=== PATIENT | male | born 1945 | race Caucasian/White ===

== ENCOUNTER → 2018-06-29 06:58 | Outpatient (CLI) | payer MEDICARE, SELFPAY ==
[2018-06-29 07:42] LABS: Hematocrit 45.5 % (40-54); Hemoglobin 13.9 g/dl (13.0-16.5); Mean Corp Hgb Conc 30.5 g/gl (32-36); Mean Corpuscular Hgb 30.3 pg (27.0-32.0); Mean Corpuscular Volume 99.1 fL (80-94); Platelet Count 209 K/mm3 (150-450); RBC Distribution Width CV 12.6 % (11.6-14.6); RBC Distribution Width SD 45.1 fl (35.1-43.9); Red Blood Count 4.59 M/mm3 (4.6-6.2)
[2018-06-29 07:49] LABS: Scan Indicated on CBC? Y/N NO
[2018-06-29 07:56] LABS: ALB/GLOB Ratio 0.8 RATIO (0.9-2.4); AST(SGOT) 17 U/L (15-37); Alanine Aminotransfer ALT/SGPT 21 U/L (16-61); Albumin, Serum 3.5 g/dL (3.2-5.0); Alkaline Phosphatase 103 U/L (45-117); Anion Gap 4 (5-15); BUN 21 mg/dL (7-18); BUN/Creat Ratio 21.2 RATIO (10-20); Calcium,Total 9.1 mg/dL (8.5-10.1); Chloride 101 mmol/L (98-107); Cholesterol 241 mg/dL (200); Creatinine, Serum 0.99 mg/dL (0.70-1.30); EST Glomerular Filtration Rate 79 mL/min (>60); Est Glom Filt Rate - Afr Amer 96 mL/min (>60); Globulin 4.5 g/dL (2.2-4.2); Glucose 141 mg/dL (74-106); High Density Lipoprotein 48 mg/dL; Potassium 4.2 mmol/L (3.5-5.1); Sodium Level 141 mmol/L (136-145); Thyroid Stim Hormone (TSH) 1.33 uIU/mL (0.358-3.74); Triglycerides 203 mg/dL; Very Low Density Lipoprotein 41 mg/dL (5-40)
== END ==
PROVIDERS: Family Provider Family Medicine; PCP Family Medicine; Referring Provider Internal Medicine Cardiovascular Disease; Visit Provider Internal Medicine Cardiovascular Disease
DX: I25.10 Atherosclerotic heart disease of native coronary artery without angina pectoris (principal); E11.9 Type 2 diabetes mellitus without complications
CPT/HCPCS: 80053; 80061; 83735; 84443; 85027

== ENCOUNTER → 2018-07-05 08:31 | Outpatient (CLI) | payer MEDICARE, SELFPAY ==
--- NOTE | 2018-07-05 08:34 | RAD_ITS ---
STUDY: X-RAY CHEST REASON FOR EXAM: Male, 73 years old. Left pulmonary nodule TECHNIQUE: PA and lateral views of the chest. COMPARISON: Prior study of 12/31/2015 FINDINGS: A left-sided pacemaker is present. There is a mass of the medial left upper lobe measuring approximately 4.0 x 4.5 cm. There are chronic interstitial changes of lungs. There is hemidiaphragmatic flattening with increased retrosternal airspace suggestive of COPD. There is no demonstrated pleural abnormality. Normal size heart. Normal mediastinum and rekha. Normal visualized pulmonary arteries. There are calcified plaques of the aortic arch. Normal visualized thoracic spine. Normal visualized ribs, clavicles, and shoulders. There is no demonstrated abnormality of the visualized soft tissue structures of the upper abdomen. RAD/Chest PA and Lateral IMPRESSION: Mass of the medial left upper lobe measuring approximately 4.0 x 4.5 cm. This was not seen on prior plain film study, but was noted on a CT of the chest of 01/25/2017. Findings suggestive of COPD. Chronic interstitial changes of the lungs. Electronically Signed: Ruben Werner MD at 17:50 EDT , Service support ,
== END ==
PROVIDERS: Family Provider Family Medicine; PCP Family Medicine; Referring Provider Family Medicine; Visit Provider Family Medicine
DX: R91.1 Solitary pulmonary nodule (principal)
CPT/HCPCS: 71046

== ENCOUNTER 2018-07-14 21:17 | Emergency (ER) | payer MEDICARE, SELFPAY ==
[2018-07-14 21:18] VITALS: BP 157/80; PULSE 70; RESP 16; TEMP 36.8; O2SAT 93; BMI 29.0
--- NOTE | 2018-07-14 22:57 | ED.DCSUM_ITS ---
History of Present Illness Chief Complaint: Shortness of Breath Narrative: Stated that over the last 3 days he has had a cough. Occasional yellow sputum. He has a history of COPD and chronic CHF. The patient stated that he has got more short of breath with his coughing fits. He is normally on 3 L of nasal cannula oxygen for his COPD. Over the last few days his increase it to 5 which is helped. He saw his family doctor on Sunday and had a chest x-ray done that showed an enlarging left pulmonary nodule that he is going to do nothing about. He understands it may be cancer but does not want a biopsy. He stated that he is going to live it out. She is on Xarelto for history of remote PE per patient denies any chest pain or other symptoms. Has not gained any weight in his legs. - Past Medical History (1) Ischemic cardiomyopathy Status: Chronic (2) Paroxysmal atrial flutter Status: Chronic (3) Benign essential HTN Status: Chronic (4) Biventricular implantable cardioverter-defibrillator (ICD) in situ Status: Chronic (5) COLD (chronic obstructive lung disease) Status: Chronic (6) Cardiomyopathy in other diseases classified elsewhere Status: Chronic (7) Chronic respiratory failure Status: Chronic (8) Chronic systolic congestive heart failure Status: Chronic (9) DM2 (diabetes mellitus, type 2) Status: Chronic (10) HLD (hyperlipidemia) Status: Chronic (11) Hypertension Status: Chronic (12) Left atrial enlargement Status: Chronic (13) Long-term use of high-risk medication Status: Chronic (14) CHESTER (obstructive sleep apnea) Status: Chronic (15) Peripheral vascular disease Status: Chronic Past Medical History - Allergies and Home Meds Allergies/Adverse Reactions: Allergies CAL Inhibitors Allergy (Verified 07/14/18 21:22) Unknown erythromycin base [Erythromycin Base] Allergy (Verified 07/14/18 21:22) Other levofloxacin [From Levaquin] Allergy (Verified 07/14/18 21:22) Other prednisone Adverse Reaction (Severe, Verified 07/14/18 21:22) Agitation Primary Care Physician: Fidel Ni MD [Primary Care Provider] - Prior records reviewed: Yes Surgical History: pacemaker implantation Lives: With Family Smoking Status: Former smoker Alcohol: None Drugs: None Review of Systems General: Denies: Chills, Fever, Sweats Eyes: Denies: Visual changes - bilaterally, Diplopia ENT: Denies: Rhinorrhea, Sore throat Cardiovascular: Denies: Chest pain, Palpitations Respiratory: Reports: Dyspnea, Cough, Sputum. Denies: Dyspnea on exertion, Orthopnea Gastrointestinal: Denies: Abdominal pain, Nausea, Vomiting, Diarrhea, Melena, Hematochezia Genitourinary: Denies: Dysuria, Hematuria, Frequency Musculoskeletal: Denies: Back pain, Extremity Pain Skin: Denies: Rash, Wounds Neurological: Denies: Headache, Weakness, Numbness Physical Exam Vital Signs/Narrative: Vital Signs Temp Pulse Resp BP Pulse Ox 07/14/18 21:18 98.3 F 70 16 157/80 H 93 General: Well nourished, Well developed, No Acute Distress Head: Normocephalic, Atraumatic Eyes: Perrl, EOMI ENT: Moist mucous membranes, No rhinorrhea Neck: Supple, Nontender Cardiovascular: Regular rate, Regular rhythm, No murmurs Respiratory: No distress, CTA bilaterally, Chest nontender Abdomen: Soft, Nontender, Nondistended, Normal bowel sounds Back: Nontender, Normal Inspection Extremities: Nontender, No edema Skin: Normal color, No rash Neurological: Alert, Oriented x3, Cranial nerves II-XII grossly intact, Normal Strength, Normal Sensation Psychological: Normal affect, Normal Mood Diagnostic/Tx/Re-eval Impressions Chest X-Ray 07/14/18 23:24 IMPRESSION: Redemonstration of a left upper lobe lung mass. Would consider CT scan of the chest for reevaluation, if not recently done elsewhere. Small left pleural effusion, worse. COPD. Diffuse chronic interstitial lung disease. Pacemaker. Electronically Signed: Thomas Agudelo MD at 1:20 EDT , Service support , 07/14/18 23:24 Chest PA and Lateral [RAD] Stat 07/14/18 23:09 Mucosa - Nasopharyngeal Influenza Types A,B Direct FA ([facility]) - Final Laboratory Results 07/14/18 07/14/18 22:55 22:55 WBC 7.3 RBC 4.45 L Hgb 13.4 Hct 42.3 MCV 95.1 H MCH 30.1 MCHC 31.7 L RDW 12.5 RDW Differential 43.4 Plt Count 219 MPV 10.4 Immature Gran % (Auto) 0.100 Neut % (Auto) 64.2 Lymph % (Auto) 19.8 [place] % (Auto) 13.3 H Eos % (Auto) 2.6 Baso % (Auto) 0.0 Absolute Neuts (auto) 4.7 Absolute Lymphs (auto) 1.44 Total Counted Not Reportable Sodium 141 Potassium 4.0 Chloride 104 Carbon Dioxide 31.0 Anion Gap 6 BUN 10 Creatinine 0.91 Estim Creat Clear Calc 72.03 Est GFR (MDRD) Af Amer 106 Est GFR (MDRD) Non-Af 87 BUN/Creatinine Ratio 11.0 Glucose 160 H Calcium 9.0 Troponin I < 0.015 - EKG Initial EKG Interpretation: Paced - Unchanged from previous at a rate of 70 - Medical Decision Making Chest x-ray shows chronic changes. Very subtle increase in left lower pleural effusion. Mass redemonstrated left upper lobe. Patient knows about this and is not going to treat it. At this time however I think he likely has an upper respiratory infection versus COPD exacerbation without wheezing. He would like an antibiotic. I discussed this could just be viral he would like an antibiotic anyway. Given a dose of azithromycin and will be given a prescription for this at home. We will continue his breathing treatments. He does not appear like he is fluid overloaded. His influenza is negative. Troponin normal. I feel he can follow-up. ED Disposition - Plan for ED Patient: Disposition: Home or Assisted Living Diagnosis: COLD (chronic obstructive lung disease) Instructions: ED COPD Flare Prescriptions: Azithromycin 250 mg PO DAILY #4 tab Referrals: Fidel Ni MD [Primary Care Provider] -
[2018-07-14 23:00] VITALS: BP 165/92; PULSE 70; RESP 20; O2SAT 96
--- NOTE | 2018-07-14 23:02 | EKG12_ITS ---
Test Reason : SOB Blood Pressure : / mmHG Vent. Rate : 070 BPM Atrial Rate : 468 BPM P-R Int : 000 ms QRS Dur : 174 ms QT Int : 432 ms P-R-T Axes : 000 261 074 degrees QTc Int : 466 ms Ventricular-paced rhythm Biventricular pacemaker detected Abnormal ECG Confirmed by IVET ZEPEDA, TRISHA ([id number]), content editor DENIS LAYTON ([id number]) on 07/17/2018 1:43:39 PM Referred By: AILIN Confirmed By:TRISHA COONEY MD
[2018-07-14 23:24] LABS: Absolute Lymphocyte Count 1.44 X10^3/ul (0.83-4.51); Absolute Neutrophil Count 4.7 X10^3/uL (2.0-7.7); Eosinophil# 0.19 X10^3/uL; Eosinophils% 2.6 % (0-5); Hematocrit 42.3 % (40-54); Hemoglobin 13.4 g/dl (13.0-16.5); Lymphocyte # 1.44 X10^3/ul (4.0); Lymphocyte % 19.8 % (19-41); Mean Corp Hgb Conc 31.7 g/gl (32-36); Mean Corpuscular Hgb 30.1 pg (27.0-32.0); Mean Corpuscular Volume 95.1 fL (80-94); Mean Platelet Vol. 10.4 fl (6.2-12.0); Monocyte# 0.97 X10^3/uL; Monocyte% 13.3 % (0-10); Neutrophil # 4.67 X10^3/uL (2.7-7.7); Neutrophil % 64.2 % (47-70); Platelet Count 219 K/mm3 (150-450); RBC Distribution Width CV 12.5 % (11.6-14.6); RBC Distribution Width SD 43.4 fl (35.1-43.9); Red Blood Count 4.45 M/mm3 (4.6-6.2); White Blood Count 7.3 K/mm3 (4.4-11.0)
--- NOTE | 2018-07-14 23:24 | RAD_ITS ---
STUDY: X-RAY CHEST REASON FOR EXAM: Male, 73 years old. Shortness of breath. Cough. TECHNIQUE: Frontal and lateral views of the chest. COMPARISON: Chest x-rays 07/05/2018 and 12/31/2015. CT scan chest 01/25/2017. FINDINGS: There is hyperinflation of the lungs consistent with chronic obstructive lung disease (COPD). There is redemonstration of a mass in the medial left upper lung field, also noted on the recent previous chest x-ray. There is interstitial prominence in the lungs which appears to be chronic. There is a small left pleural effusion which has worsened from recent previous study. Normal size heart. There is an atrial-bilateral ventricular pacemaker. Normal mediastinum and rekha. Normal visualized pulmonary arteries. There is atherosclerotic calcification of the aortic arch with tortuosity. There are no visualized acute osseous abnormalities. . There is no demonstrated abnormality of the visualized soft tissue structures of the upper abdomen. RAD/Chest PA and Lateral IMPRESSION: Redemonstration of a left upper lobe lung mass. Would consider CT scan of the chest for reevaluation, if not recently done elsewhere. Small left pleural effusion, worse. COPD. Diffuse chronic interstitial lung disease. Pacemaker. Electronically Signed: Thomas Agudelo MD at 1:20 EDT , Service support ,
[2018-07-14 23:25] LABS: POSITIVE COUNT NO; POSITIVE DIFFERENTIAL NO; POSITIVE MORPHOLOGY NO
[2018-07-14 23:37] LABS: Anion Gap 6 (5-15); BUN 10 mg/dL (7-18); Chloride 104 mmol/L (98-107); Creatinine, Serum 0.91 mg/dL (0.70-1.30); EST Glomerular Filtration Rate 87 mL/min (>60); Est Glom Filt Rate - Afr Amer 106 mL/min (>60); Estimated Creatinine Clearance 72.03 ml/min; Glucose 160 mg/dL (74-106); Sodium Level 141 mmol/L (136-145)
[2018-07-15 01:00] VITALS: BP 153/91; PULSE 70; RESP 18; O2SAT 98
[2018-07-15 01:36] VITALS: BP 154/84; PULSE 69; RESP 18; O2SAT 95
[2018-07-15] MEDS: Azithromycin 250 MG Tablet 500 MG PO (01:37)
== END 2018-07-15 02:06 | disposition home or self-care (01) ==
PROVIDERS: Emergency Provider Emergency Medicine; Family Provider Family Medicine; PCP Family Medicine
DX: J44.9 Chronic obstructive pulmonary disease, unspecified (principal); R91.8 Other nonspecific abnormal finding of lung field; I48.0 Paroxysmal atrial fibrillation; I25.5 Ischemic cardiomyopathy; I11.0 Hypertensive heart disease with heart failure; I50.22 Chronic systolic (congestive) heart failure; I73.9 Peripheral vascular disease, unspecified; E78.5 Hyperlipidemia, unspecified; J96.10 Chronic respiratory failure, unspecified whether with hypoxia or hypercapnia; E11.9 Type 2 diabetes mellitus without complications; G47.33 Obstructive sleep apnea (adult) (pediatric); Z95.810 Presence of automatic (implantable) cardiac defibrillator; Z99.81 Dependence on supplemental oxygen; Z79.01 Long term (current) use of anticoagulants; Z79.84 Long term (current) use of oral hypoglycemic drugs; Z79.899 Other long term (current) drug therapy; Z86.711 Personal history of pulmonary embolism; Z87.891 Personal history of nicotine dependence
CPT/HCPCS: 71046; 80048; 84484; 85025; 87804; 93005; 99285

== ENCOUNTER 2018-08-23 19:10 | Inpatient (IN) | payer MEDICARE, SELFPAY ==
[2018-08-23] VITALS (7 sets, daily range): BP systolic 137–166; BP diastolic 82–98; PULSE 70–77; RESP 16–21; TEMP 36.9–37.1; O2SAT 86–99; BMI 28.8
--- NOTE | 2018-08-23 19:17 | ED.RN ---
PT WAS INITIALLY ON 6 L NC AND 8 L NC VIA MOUTH WITH PULSE OX AT 95
--- NOTE | 2018-08-23 19:47 | EKG12_ITS ---
Test Reason : SOB Blood Pressure : / mmHG Vent. Rate : 070 BPM Atrial Rate : 070 BPM P-R Int : 000 ms QRS Dur : 164 ms QT Int : 410 ms P-R-T Axes : 000 266 070 degrees QTc Int : 442 ms Ventricular-paced rhythm Biventricular pacemaker detected Abnormal ECG Confirmed by CARLOS ZEPEDA, BRIAN ([id number]), photography editor DENIS LAYTON ([id number]) on 08/27/2018 1:20:13 PM Referred By: RAJENDRA Confirmed By:BRIAN GONZALEZ MD
--- NOTE | 2018-08-23 19:47 | CT_ITS ---
HISTORY: COPD, SOB, RINA MASS TECHNIQUE: Helically acquired images were obtained of the chest following IV contrast as per pulmonary angiogram protocol with 3D reconstructions. A radiation dose optimization technique was used for this scan. IV Contrast dosage and agent: 75 cc [id number] COMPARISON: 01/25/17 CT chest. FINDINGS: # of images incl. paperwork: 602 No pulmonary embolus. No dissection or aneurysm of the thoracic aorta. Heart size within normal limits. No pericardial effusion. Implanted cardiac device left chest, leads right atrium, right ventricle and along the margin of the left ventricle. Coronary artery atherosclerosis again demonstrated. Marked interval enlargement of the left upper lobe mass, now 4.6 x 5.2 x 5.0 cm TRV X APX craniocaudad, increased from 1.6 cm diameter on the previous study. The mass now infiltrates into the left lateral, anterior, upper mediastinal fat and encases a portion of the left internal mammary artery, and encasing left upper lobe anterior subsegmental bronchovascular structures. Satellite pleural-based nodule more inferiorly in the lingula abutting the anterior medial pleura, in the more inferior and lateral lingula, and in the more posterior and cephalad left lung apex and along the fissure. Scattered subcentimeter nodules in the left lower lobe are grossly similar to prior, less well seen today due to atelectasis from adjacent pleural effusion. Scattered small nodules in the periphery of the right lung are not significantly changed. Marked emphysema again demonstrated. No pneumothorax. Loculated appearing small in size left pleural effusion most prominent in the posterior, inferior aspect of the left thoracic cavity, with adjacent atelectasis, new compared to prior. Interval development of mild likely metastatic AP window, left hilar, and subcarinal lymphadenopathy. No aggressive osseous lesions. No apparent metastases or acute findings in the partially visible upper abdomen. Multilevel chronic thoracic compression fracture similar to prior. CT/CTA Chest W/WO Contrast IMPRESSION: No pulmonary embolus. Marked interval enlargement of the left upper lobe mass, now encasing some adjacent structures, described in detail above. Likely metastatic left-sided pleural-based nodules and mild likely metastatic mediastinal and left hilar adenopathy new compared to prior. Loculated appearing small sized left pleural effusion. Emphysema, atherosclerosis, other findings as above. Individualized dose optimization techniques were used for this CT. at 2126 Reported and signed by: Ruben Boyce MD Electronically Signed: Ruben Boyce, at 21:25 EDT Tel , Service support ,
[2018-08-23] MEDS: Ipratropium/Albuterol Sulfate 3 ML AMPUL.NEB INHALATION (19:56)
[2018-08-23 20:24] LABS: Anion Gap 2 (5-15); BUN 19 mg/dL (7-18); BUN/Creat Ratio 16.7 RATIO (10-20); Calcium,Total 9.2 mg/dL (8.5-10.1); Chloride 97 mmol/L (98-107); Creatinine, Serum 1.14 mg/dL (0.70-1.30); EST Glomerular Filtration Rate 67 mL/min (>60); Est Glom Filt Rate - Afr Amer 81 mL/min (>60); Glucose 151 mg/dL (74-106); Potassium 4.1 mmol/L (3.5-5.1); Sodium Level 137 mmol/L (136-145)
[2018-08-23 20:25] LABS: Absolute Lymphocyte Count 0.78 X10^3/ul (0.83-4.51); Absolute Neutrophil Count 5.6 X10^3/uL (2.0-7.7); Basophil# 0.01 X10^3/uL; Basophil% 0.1 % (0-1); Eosinophil# 0.18 X10^3/uL; Eosinophils% 2.4 % (0-5); Hemoglobin 13.2 g/dl (13.0-16.5); Lymphocyte # 0.78 X10^3/ul (4.0); Lymphocyte % 10.3 % (19-41); Mean Corp Hgb Conc 30.7 g/gl (32-36); Mean Corpuscular Hgb 29.3 pg (27.0-32.0); Mean Corpuscular Volume 95.3 fL (80-94); Monocyte# 0.95 X10^3/uL; Monocyte% 12.6 % (0-10); Neutrophil # 5.61 X10^3/uL (2.7-7.7); Neutrophil % 74.5 % (47-70); POSITIVE COUNT NO; POSITIVE DIFFERENTIAL NO; POSITIVE MORPHOLOGY NO; Platelet Count 190 K/mm3 (150-450); RBC Distribution Width CV 12.4 % (11.6-14.6); RBC Distribution Width SD 43.1 fl (35.1-43.9); Red Blood Count 4.51 M/mm3 (4.6-6.2); White Blood Count 7.5 K/mm3 (4.4-11.0)
[2018-08-23 20:58] LABS: BNP,B-Type NATRIURETIC PEPTIDE 32.6 pg/mL (0-100)
--- NOTE | 2018-08-23 23:50 | PCM.HP.STD ---
Problem List (1) Lung mass Status: Acute (2) COPD (chronic obstructive pulmonary disease) Status: Chronic History of Present Illness Date of Admission: 08/23/18 Chief Complaint: shortness of breath The patient is a 73 year old M with a significant history of COPD; former tobacco abuse; paroxysmal A. fib on Xarelto; hypertension; chronic systolic heart failure; biventricular ICD; obstructive sleep apnea; home oxygen use of 5 to 6 L; who presented with a 6-month history of progressively worsening shortness of breath upon exertion. Patient reported that he was previously diagnosed with left lung nodule in 2017 which was initially being watched. Reportedly the lung mass at that time was diagnosed with a CT/PET scan. It was about 5 mm. He reported that he was told that the mass was inoperable. However, a year ago biopsy was discussed but reportedly he was informed that after the biopsy his symptoms will not improved and his symptoms may even worsen. However he reported that a year thereafter he was told that his lung mass can be operated. So far nothing about his lung mass has been done. With this presentation chest CTA showed marked interval enlargement of the left upper lobe mass now encasing adjacent structures. Emergency department doctor reported discussing the case with a CT surgeon at [facility] who stated the patient is not a candidate of CT surgery at this time. Reportedly emergent department doctor discussed the case with Dr. Ludwig, oncologist who recommended CT-guided biopsy and for pulmonology to evaluate patient. Per, Emergency department doctor that Dr. Ludwig, oncologist, will be interested in following the patient after patient has had CT-guided biopsy. Past Medical History Past Medical History (Chronic Problems): Chronic Problems (Last Reviewed 08/24/18 @ 01:51 by Jim Rock MD) COPD (chronic obstructive pulmonary disease) (Chronic) Paroxysmal atrial flutter (Chronic) CHESTER (obstructive sleep apnea) (Chronic) Long-term use of high-risk medication (Chronic) Peripheral vascular disease (Chronic) Left atrial enlargement (Chronic) Hypertension (Chronic) Chronic systolic congestive heart failure (Chronic) Cardiomyopathy in other diseases classified elsewhere (Chronic) Ischemic cardiomyopathy (Chronic) Biventricular implantable cardioverter-defibrillator (ICD) in situ (Chronic) HLD (hyperlipidemia) (Chronic) DM2 (diabetes mellitus, type 2) (Chronic) COLD (chronic obstructive lung disease) (Chronic) Benign essential HTN (Chronic) On anticoagulant therapy (Chronic) Chronic respiratory failure (Chronic) Medical History: Medical History (Last Reviewed 08/24/18 @ 01:51 by Jim Rock MD) Paroxysmal atrial flutter (Chronic) I48.92 CHESTER (obstructive sleep apnea) (Chronic) G47.33 Long-term use of high-risk medication (Chronic) Z79.899 Peripheral vascular disease (Chronic) I73.9 Left atrial enlargement (Chronic) I51.7 Hypertension (Chronic) I10 Chronic systolic congestive heart failure (Chronic) I50.22 Cardiomyopathy in other diseases classified elsewhere (Chronic) I43 Ischemic cardiomyopathy (Chronic) I25.5 Biventricular implantable cardioverter-defibrillator (ICD) in situ (Chronic) Z95.810 HLD (hyperlipidemia) (Chronic) E78.5 DM2 (diabetes mellitus, type 2) (Chronic) E11.9 COLD (chronic obstructive lung disease) (Chronic) J44.9 Benign essential HTN (Chronic) I10 On anticoagulant therapy (Chronic) Z79.01 Chronic respiratory failure (Chronic) J96.10 History of pulmonary embolism Z86.711 Allergies CAL Inhibitors Allergy (Verified 08/23/18 19:16) Unknown erythromycin base [Erythromycin Base] Allergy (Verified 08/23/18 19:16) Other levofloxacin [From Levaquin] Allergy (Verified 08/23/18 19:16) Other prednisone Adverse Reaction (Severe, Verified 08/23/18 19:16) Agitation Home Medications: Ambulatory Orders Medication Instructions Recorded Albuterol IH (ProAir) [Proair Hfa] 2 puff INHALATION Q6H PRN PRN 03/08/13 Tiotropium [place] [Spiriva 18 MCG] 1 puff INHALATION DAILY 03/08/13 Albuterol Aerosols [Ventolin 2.5 mg INHALATION Q4H PRN PRN 01/11/15 Aerosols] Oxygen, Home [Home Oxygen] 6 lpm NASAL PRN PRN 01/11/15 fluticasone furoate 100 1 inh INHALATION DAILY 08/27/17 mcg-vilanterol 25 mcg/dose inhalation powder vit C 50 mg-E 15 unit-zinc cit 4.5 1 tab PO DAILY tab 08/27/17 mg-lutein 2.5 mg-zeaxan chew tablet theophylline ER 300 mg 300 mg PO Q12H 08/30/17 tablet,extended release,12 hr rivaroxaban 20 mg tablet 20 mg PO QHS #30 tab 11/19/17 carvedilol 6.25 mg tablet 6.25 mg PO BID #180 tab 12/21/17 Hydrocodone/Acetaminophen [Alplaus 1 each PO TID 08/23/18 5-325 Tablet] Lisinopril [Prinivil] 10 mg PO DAILY 08/23/18 Surgical History: Surgical History (Last Reviewed 08/24/18 @ 01:51 by Jim Rock MD) History of cardiac radiofrequency ablation Onset Date: ~03/2010 Z98.890 Surgical History: pacemaker implantation Lives: With Family Smoking Status: Former smoker - *Family History Maternal Family History: Family History (Last Reviewed 08/24/18 @ 03:12 by Jim Rock MD) Father CAD (coronary artery disease) Myocardial infarction Mother Cancer Review of Systems Constitutional: Reports: Anorexia, Weakness, Fatigue. Denies: Chills, Fever, Weight Change HEENT: Denies: Head Aches, Sinus Congestion, Sinus Drainage Cardiovascular: Denies: Chest Pain, Palpitations Respiratory: Reports: Shortness of breath upon exertion. Denies: Cough, Sputum production Gastrointestinal: Denies: Abdominal Pain, Nausea, Vomiting Genitourinary: Denies: Dysuria Musculoskeletal: Denies: Joint Pain, Joint Tenderness Skin: Denies: Rash, Wounds Neurological: Denies: Numbness, Tingling, Focal weakness Psychiatric: Denies: Anxiety, Depression, Homicidal Ideations, Suicidal Ideations Hematologic/ Lymphatic: Denies: Easy Bruising, Easy Bleeding VTE Information - Inpt Only VTE Present on Admission: No VTE Mechan Device Prophylaxis: SCD's VTE Pharm Prophylaxis ordered?: No Patient Problems: Active and Suspected Problems (Last Reviewed 08/24/18 @ 01:51 by Jim Rock MD) Lung mass (Acute) - Physical Exam General: Alert, Oriented x3, Cooperative HEENT: Atraumatic, PERRLA, EOMI, Normocephalic Neck: Supple, No JVD, Negative Carotid Bruits Lungs: Diminished - mild Cardiovascular: Regular rate, No murmurs Abdomen: Bowel Sounds Present, Soft, Non Tender Extremities: No edema, Capillary Refill Less than 3 Seconds Skin: No rashes, No breakdown Musculoskeletal: No Tenderness to Palpation of Joints or Extremities Neurological: Neuro grossly intact Psych/Mental Status: Normal Affect, Appropriate Vital Signs Temp Pulse Resp BP Pulse Ox 98.5 F 71 16 153/82 H 98 08/23/18 23:00 08/23/18 23:00 08/23/18 23:00 08/23/18 23:00 08/23/18 23:00 Oxygen Flow Rate (L/min) 6 Oxygen Delivery Method Nasal Cannula Weight: 85.8 kg Body Mass Index (BMI) 28.8 Laboratory Tests Past 24 Hrs 08/23/18 08/23/18 08/23/18 19:55 19:55 19:55 WBC 7.5 RBC 4.51 L Hgb 13.2 Hct 43.0 MCV 95.3 H MCH 29.3 MCHC 30.7 L RDW 12.4 RDW Differential 43.1 Plt Count 190 MPV 10.0 Immature Gran % (Auto) 0.100 Neut % (Auto) 74.5 H Lymph % (Auto) 10.3 L [place] % (Auto) 12.6 H Eos % (Auto) 2.4 Baso % (Auto) 0.1 Absolute Neuts (auto) 5.6 Absolute Lymphs (auto) 0.78 L Total Counted Not Reportable Sodium 137 Potassium 4.1 Chloride 97 L Carbon Dioxide 38.0 H Anion Gap 2 L BUN 19 H Creatinine 1.14 Estim Creat Clear Calc 57.50 Est GFR (MDRD) Af Amer 81 Est GFR (MDRD) Non-Af 67 BUN/Creatinine Ratio 16.7 Glucose 151 H Calcium 9.2 Troponin I < 0.015 B-Natriuretic Peptide 32.6 Assessment/Plan All Active Problems (Last Reviewed 08/24/18 @ 01:51 by Jim Rock MD) Lung mass (Acute) The patient is a 73 year old M with a significant history of COPD; former tobacco abuse; paroxysmal A. fib on Xarelto; hypertension; chronic systolic heart failure; biventricular ICD; obstructive sleep apnea; home oxygen use of 5 to 6 L; who presented with a 6-month history of progressively worsening shortness of breath upon exertion and found to have radiographic evidence of marked interval enlargement of left upper lobe mass encasing adjacent structures. Left upper lobe mass. Patient is on Xarelto for A. fib. He reported report that he has missed 1 dose of his Xarelto because he came to the emergency department. We will hold Xarelto for [address] guided biopsy for 08/25. If interventional radiologist will not be available consider changing date to Sunday08/26/18. We will keep n.p.o. a night before the procedure; Ordered Will get PT/INR morning of scheduled procedure. We will consult director of elementary education to optimize management. Consider Dr. Ludwig consult after lung biopsy. COPD Unlikely that patient is in exacerbation since his symptoms has been going on for about 6 months. On examination the patient had no wheezes. He denies coughing. He had mild diminished lung sounds. Reportedly patient had LA from previous use of prednisone. On home Fluticasone- Vilanterol and albuterol. We will keep patient on scheduled DuoNeb and as needed albuterol. Ipratropium held. Fluticasone inhalation continued Continue oxygen supplementation. Of note patient is on home 5 to 6 L of nasal cannula. Chronic back pain Alplaus continued Ischemic cardiomyopathy Lisinopril and Coreg continued Patient with ICD. Hypertension Of note on presentation his blood pressure in regards to his age was stable. Carvedilol and lisinopril continued Trend blood pressure Paroxysmal A. fib Patient in sinus rhythm on admission Theophylline continued Xarelto held in preparation for lung biopsy. Obstructive Sleep apnea Patient reported that he is not able to tolerate NIPPV. DVT prophylaxis SCD ordered. Code Visit OBSV E&M: [id number] Initial observation care L3
[2018-08-24] VITALS (15 sets, daily range): BP systolic 110–159; BP diastolic 62–89; PULSE 70–86; RESP 16–24; TEMP 36.2–37; O2SAT 93–98; BMI 27.7; BMI 28.8
--- NOTE | 2018-08-24 00:17 | ED.VISSUMM ---
- ER Visit Summary Date of Service: 08/24/18 Chief Complaint: Shortness of breath History of Present Illness: The patient is a 73 M with increasing shortness of breath. This has been gradually getting worse over several weeks since that the patient has very severe shortness of breath even with walking a few steps. Better with rest. He does have a history of COPD, CHF, [place], sleep apnea, a flutter, cardiomyopathy, DVT/PE. He is on home oxygen, 6 L by nasal cannula and Xarelto among his other medications. He says he has been compliant. Denies cough currently but has been dealing with a cough and phlegm over the past week. Seems to be improving with Mucinex. He is not currently on steroids or antibiotics. He is using his nebulizers every 4 hours. Patient also has a history of left lung cancer. He says that he was told that his symptoms would not improve with treatment, so he never sought further evaluation. Physical Examination: Afebrile and vital signs unremarkable except for his oxygen at 86% on nasal cannula. Patient is sitting upright and appears slightly uncomfortable but not toxic or in distress. Lungs are diminished with mild expiratory wheeze in all swenson. Heart regular. Abdomen soft. Extremities nontender with no edema. Skin normal in color. Test Results: EKG showed a paced rhythm at a rate of 70. CBC and BMP unremarkable. Troponin and BNP are normal. CTA chest shows no evidence of PE. He does have an increasing left upper lobe mass that is infiltrative into the surrounding mediastinum and encasing the nearby vessels. He also has a mild loculated left pleural effusion and other chronic changes. Emergency Department Course and Treatment: Patient maintained on oxygen and a library monitor. He received a DuoNeb treatment. He did not receive steroids as he has an allergy to prednisone. Patient is stable on reevaluation. I discussed the CT findings, and notified the patient that the mass is expanding. It appears malignant and it is invading and encasing the surrounding structures. I suspect this is in part making his breathing worse. Although the patient did not want treatment in the past, because of his symptoms, he would like to be further evaluated. We contacted an outside hospital, [facility] as we do not have CT surgery at this facility. A Dr. Page reviewed the results. The patient is not a surgical candidate. With this in mind, the patient would like to stay at this facility. I spoke with Dr. Ludwig who advised that he could evaluate the patient but he will need a CT-guided biopsy first. He also advised a pulmonology consult. Patient would like to stay in the hospital given his severe shortness of breath with exertion. He does not feel he can function at home. I contacted the hospitalist to admit for further care. Treatment Plan: As above Disposition: Admission Impression: 1. COPD exacerbation 2. Invasive lung mass This note was generated with [employer] dictation software. It may contain incorrect words, spelling, and punctuation that were not noted in review of the chart prior to signing ED Disposition - Plan for ED Patient: Referrals: Fidel Ni MD [Primary Care Provider] -
--- NOTE | 2018-08-24 00:23 | ED.DCSUM_ITS ---
- ER Visit Summary Date of Service: 08/24/18 Chief Complaint: Shortness of breath History of Present Illness: The patient is a 73 M with increasing shortness of breath. This has been gradually getting worse over several weeks since that the patient has very severe shortness of breath even with walking a few steps. Better with rest. He does have a history of COPD, CHF, [place], sleep apnea, a flutter, cardiomyopathy, DVT/PE. He is on home oxygen, 6 L by nasal cannula and Xarelto among his other medications. He says he has been compliant. Denies cough currently but has been dealing with a cough and phlegm over the past week. Seems to be improving with Mucinex. He is not currently on steroids or ant ibiotics. He is using his nebulizers every 4 hours. Patient also has a history of left lung cancer. He says that he was told that his symptoms would not improve with treatment, so he never sought further evaluation. Physical Examination: Afebrile and vital signs unremarkable except for his oxygen at 86% on nasal cannula. Patient is sitting upright and appears slightly uncomfortable but not toxic or in distress. Lungs are diminished with mild expiratory wheeze in all swenson. Heart regular. Abdomen soft. Extremities nontender with no edema. Skin normal in color. Test Results: EKG showed a paced rhythm at a rate of 70. CBC and BMP unremarkable. Troponin and BNP are normal. CTA chest shows no evidence of PE. He does have an increasing left upper lobe mass that is infiltrative into the surrounding mediastinum and encasing the nearby vessels. He also has a mild loculated left pleural effusion and other chronic changes. Emergency Department Course and Treatment: Patient maintained on oxygen and a quality assurance monitor chassis. He received a DuoNeb treatment. He did not receive steroids as he has an allergy to prednisone. Patient is stable on reevaluation. I discussed the CT findings, and notified the patient that the mass is expanding. It appears malignant and it is invading and encasing the surrounding structures. I suspect this is in part making his breathing worse. Although the patient did not want treatment in the past, because of his symptoms, he would like to be further evaluated. We contacted an outside hospital, [facility] as we do not have CT surgery at this facility. A Dr. Page reviewed the results. The patient is not a surgical candidate. With this in mind, the patient would like to stay at this facility. I spoke with Dr. Ludwig who advised that he could evaluate the patient but he will need a CT-guided biopsy first. He also advised a pulmonology consult. Patient would like to stay in the hospital given his severe shortness of breath with exertion. He does not feel he can function at home. I contacted the hospitalist to admit for further care. Treatment Plan: As above Disposition: Admission Impression: 1. COPD exacerbation 2. Invasive lung mass This note was generated with [employer] dictation software. It may contain incorrect words, spelling, and punctuation that were not noted in review of the chart prior to signing ED Disposition - Plan for ED Patient: Referrals: Fidel Ni MD [Primary Care Provider] -
[2018-08-24 00:38] LABS: International Normalized Ratio 1.2; Prothrombin Time (Protime)PT. 14.5 SECONDS (11.7-14.9)
[2018-08-24 00:39] LABS: Partial Thromboplast Time 40.2 Seconds (24.1-36.2)
[2018-08-24] MEDS: HYDROcodone Bitartrate/Apap 5/325 Tablet PO ×4 (00:40→22:08)
[2018-08-24] MEDS: Ipratropium/Albuterol Sulfate 3 ML AMPUL.NEB INHALATION ×3 (07:13→19:45)
--- NOTE | 2018-08-24 08:54 | PCM.CONS.PUL ---
Problem List (1) Lung mass Status: Acute (2) COPD (chronic obstructive pulmonary disease) Status: Chronic Qualifiers: COPD type: emphysema Emphysema type: centrilobular Qualified Code(s): J43.2 - Centrilobular emphysema (3) Paroxysmal atrial flutter Status: Chronic (4) CHESTER (obstructive sleep apnea) Status: Chronic (5) Peripheral vascular disease Status: Chronic (6) Left atrial enlargement Status: Chronic (7) Hypertension Status: Chronic Qualifiers: Hypertension type: essential hypertension Qualified Code(s): I10 - Essential (primary) hypertension (8) Chronic systolic congestive heart failure Status: Chronic (9) Ischemic cardiomyopathy Status: Chronic (10) Biventricular implantable cardioverter-defibrillator (ICD) in situ Status: Chronic (11) HLD (hyperlipidemia) Status: Chronic Qualifiers: Hyperlipidemia type: unspecified Qualified Code(s): E78.5 - Hyperlipidemia, unspecified (12) DM2 (diabetes mellitus, type 2) Status: Chronic (13) Benign essential HTN Status: Chronic (14) Chronic respiratory failure Status: Chronic Qualifiers: Respiratory failure complication: hypoxia Qualified Code(s): J96.11 - Chronic respiratory failure with hypoxia Reason for Consult Date of Consultation: 08/24/18 Reason for Consultation: Lung mass History of Present Illness: The patient is a 73 year old M, with past medical history listed below, who presented to [facility] on 08/24/2018 secondary to progressive shortness of breath over the last couple of months. Patient states that he had progressed to the point where he could walk less than 10 feet without resting. Patient does have a complex past medical history and states that he is on 6 to 10 L of nasal cannula oxygen at home to maintain saturations. Patient is on Xarelto therapy, but denies any bleeding complications. Patient does report his being sick recently and he has started to cough with clear phlegm over the last week. Patient did initiate Mucinex with some improvement. Patient is not currently on steroids or antibiotics, but has been using his nebulizer every 4 hours without improvement. In the emergency room, patient received a CT scan showing a probable left upper lobe cancer invading and encasing surrounding structures. Patient was requiring significant FiO2 to maintain saturations, so he was admitted to the floor for further evaluation. Patient reportedly has been seen by Dr. Aleman in [place]. Patient reportedly has been told that he was not an operative candidate and essentially has been lost to follow-up. Patient states I am probably going to , but my shortness of breath got so bad that I could not stay at home. Patient reports he has been compliant with his medications, but has noted progressive fatigue over the last 2 to 3 months. Patient is also noted increased FiO2 to maintain saturations. Patient states he lives at home with his son and ex-, but has become relatively dependent on his son for activities of daily living. Patient is not currently using any noninvasive therapy for obstructive sleep apnea. Patient places his exercise tolerance at 4 to 5 feet. Patient reports significant reservations to hospice measures, but is unable to articulate any specific concerns. Patient states he has never had a biopsy of the mass, but I was told that it would probably kill me. Review of systems otherwise negative x10 systems Past Medical History Past Medical History (Chronic Problems): Chronic Problems (Last Reviewed 08/24/18 @ 01:51 by Jim Rock MD) COPD (chronic obstructive pulmonary disease) (Chronic) Paroxysmal atrial flutter (Chronic) CHESTER (obstructive sleep apnea) (Chronic) Long-term use of high-risk medication (Chronic) Peripheral vascular disease (Chronic) Left atrial enlargement (Chronic) Hypertension (Chronic) Chronic systolic congestive heart failure (Chronic) Cardiomyopathy in other diseases classified elsewhere (Chronic) Ischemic cardiomyopathy (Chronic) Biventricular implantable cardioverter-defibrillator (ICD) in situ (Chronic) HLD (hyperlipidemia) (Chronic) DM2 (diabetes mellitus, type 2) (Chronic) COLD (chronic obstructive lung disease) (Chronic) Benign essential HTN (Chronic) On anticoagulant therapy (Chronic) Chronic respiratory failure (Chronic) Medical History: Medical History (Last Reviewed 08/24/18 @ 01:51 by Jim Rock MD) Paroxysmal atrial flutter (Chronic) I48.92 CHESTER (obstructive sleep apnea) (Chronic) G47.33 Long-term use of high-risk medication (Chronic) Z79.899 Peripheral vascular disease (Chronic) I73.9 Left atrial enlargement (Chronic) I51.7 Hypertension (Chronic) I10 Chronic systolic congestive heart failure (Chronic) I50.22 Cardiomyopathy in other diseases classified elsewhere (Chronic) I43 Ischemic cardiomyopathy (Chronic) I25.5 Biventricular implantable cardioverter-defibrillator (ICD) in situ (Chronic) Z95.810 HLD (hyperlipidemia) (Chronic) E78.5 DM2 (diabetes mellitus, type 2) (Chronic) E11.9 COLD (chronic obstructive lung disease) (Chronic) J44.9 Benign essential HTN (Chronic) I10 On anticoagulant therapy (Chronic) Z79.01 Chronic respiratory failure (Chronic) J96.10 History of pulmonary embolism Z86.711 Allergies CAL Inhibitors Allergy (Verified 08/23/18 19:16) Unknown erythromycin base [Erythromycin Base] Allergy (Verified 08/23/18 19:16) Other levofloxacin [From Levaquin] Allergy (Verified 08/23/18 19:16) Other prednisone Adverse Reaction (Severe, Verified 08/23/18 19:16) Agitation Home Medications: Ambulatory Orders Medication Instructions Recorded Albuterol IH (ProAir) [Proair Hfa] 2 puff INHALATION Q6H PRN PRN 03/08/13 Tiotropium [place] [Spiriva 18 MCG] 1 puff INHALATION DAILY 03/08/13 Albuterol Aerosols [Ventolin 2.5 mg INHALATION Q4H PRN PRN 01/11/15 Aerosols] Oxygen, Home [Home Oxygen] 6 lpm NASAL PRN PRN 01/11/15 fluticasone furoate 100 1 inh INHALATION DAILY 08/27/17 mcg-vilanterol 25 mcg/dose inhalation powder vit C 50 mg-E 15 unit-zinc cit 4.5 1 tab PO DAILY tab 08/27/17 mg-lutein 2.5 mg-zeaxan chew tablet theophylline ER 300 mg 300 mg PO Q12H 08/30/17 tablet,extended release,12 hr rivaroxaban 20 mg tablet 20 mg PO QHS #30 tab 11/19/17 carvedilol 6.25 mg tablet 6.25 mg PO BID #180 tab 12/21/17 Hydrocodone/Acetaminophen [[place] 1 each PO TID 08/23/18 5-325 Tablet] Lisinopril [Prinivil] 10 mg PO DAILY 08/23/18 Surgical History: Surgical History (Last Reviewed 08/24/18 @ 01:51 by Jim Rock MD) History of cardiac radiofrequency ablation Onset Date: ~03/2010 Z98.890 Surgical History: pacemaker implantation Lives: With Family Smoking Status: Former smoker - *Family History Maternal Family History: Family History (Last Reviewed 08/24/18 @ 03:12 by Jim Rock MD) Father CAD (coronary artery disease) Myocardial infarction Mother Cancer Patient Problems: Active and Suspected Problems (Last Reviewed 08/24/18 @ 01:51 by Jim Rock MD) Lung mass (Acute) Objective: CT scan of the chest was personally reviewed showing a loculated left pleural effusion and enlarging mass in the anterior of the left upper lobe. Patient does have some mild lymphadenopathy appreciated. PET scan (10/16/2016): Positive PET scan for left upper anterior hemithorax Complete PFT (04/19/2016): Irreversible very severe large airways mixed ventilatory defect with symmetric reduction diffusion capacity (FVC 58%, FEV1 18%, TLC 45%, DLCO 22%) - Physical Exam General: Alert, Oriented x3, Cooperative, - - Mild conversational dyspnea. Appears older than stated age. HEENT: Atraumatic, PERRLA, EOMI, Normocephalic, - - No scleral icterus or injection noted. Oral: Moist Mucosa, No Gingival or Mucosal Lesions/ Ulcerations Neck: Supple, No JVD, No Nodes, Trachea Midline Lungs: No rhonchi, No wheeze, No rales, Diminished, - - Dullness to percussion at the left base Cardiovascular: Regular rate, Regular Rhythm, Normal S1, Normal S2, No murmurs, No rub noted, No Gallop Abdomen: Bowel Sounds Present, Soft, Non Tender, Non-Distended Extremities: No cyanosis, No edema, Capillary Refill Less than 3 Seconds, Clubbing Skin: No rashes, No breakdown Musculoskeletal: No Tenderness to Palpation of Joints or Extremities Lymphatic: No Cervical, Supraclavicular, or Inguinal Adenopathy Neurological: Cranial nerves II-XII grossly intact, Neuro grossly intact, Motor Exam 5/5 strength throughout Psych/Mental Status: Alert and oriented to time, place, person, mood and affect Vital Signs Temp Pulse Resp BP Pulse Ox 36.6 C 73 24 H 159/67 H 93 08/24/18 05:47 08/24/18 07:13 08/24/18 07:13 08/24/18 05:47 08/24/18 07:13 Oxygen Flow Rate (L/min) 6 Oxygen Delivery Method Nasal Cannula Weight: 83.007 kg Body Mass Index (BMI) 27.7 Intake and Output for Last 24 Hours 08/22/18 08/23/18 08/24/18 23:59 23:59 23:59 Intake Total 100 / 100 Balance 100 / 100 Laboratory Tests Past 24 Hrs 08/23/18 08/23/18 08/23/18 19:55 19:55 19:55 WBC 7.5 RBC 4.51 L Hgb 13.2 Hct 43.0 MCV 95.3 H MCH 29.3 MCHC 30.7 L RDW 12.4 RDW Differential 43.1 Plt Count 190 MPV 10.0 Immature Gran % (Auto) 0.100 Neut % (Auto) 74.5 H Lymph % (Auto) 10.3 L [place]lee % (Auto) 12.6 H Eos % (Auto) 2.4 Baso % (Auto) 0.1 Absolute Neuts (auto) 5.6 Absolute Lymphs (auto) 0.78 L Total Counted Not Reportable PT INR APTT Sodium 137 Potassium 4.1 Chloride 97 L Carbon Dioxide 38.0 H Anion Gap 2 L BUN 19 H Creatinine 1.14 Estim Creat Clear Calc 57.50 Est GFR (MDRD) Af Amer 81 Est GFR (MDRD) Non-Af 67 BUN/Creatinine Ratio 16.7 Glucose 151 H Calcium 9.2 Troponin I < 0.015 B-Natriuretic Peptide 32.6 08/23/18 19:55 WBC RBC Hgb Hct MCV MCH MCHC RDW RDW Differential Plt Count MPV Immature Gran % (Auto) Neut % (Auto) Lymph % (Auto) Greenlee % (Auto) Eos % (Auto) Baso % (Auto) Absolute Neuts (auto) Absolute Lymphs (auto) Total Counted PT 14.5 INR 1.2 APTT 40.2 H Sodium Potassium Chloride Carbon Dioxide Anion Gap BUN Creatinine Estim Creat Clear Calc Est GFR (MDRD) Af Amer Est GFR (MDRD) Non-Af BUN/Creatinine Ratio Glucose Calcium Troponin I B-Natriuretic Peptide Clinical Impression(s) from Imaging Studies Chest CTA 08/23/18 19:47 IMPRESSION: No pulmonary embolus. Marked interval enlargement of the left upper lobe mass, now encasing some adjacent structures, described in detail above. Likely metastatic left-sided pleural-based nodules and mild likely metastatic mediastinal and left hilar adenopathy new compared to prior. Loculated appearing small sized left pleural effusion. Emphysema, atherosclerosis, other findings as above. Individualized dose optimization techniques were used for this CT. at 2126 Reported and signed by: Ruben Boyce MD Electronically Signed: Ruben Boyce, at 21:25 EDT Tel , Service support , Assessment/Plan All Active Problems (Last Reviewed 08/24/18 @ 01:51 by Jim Rock MD) Lung mass (Acute) RECOMMENDATIONS: 1. Discontinue Pulmicort, add Solu-Medrol 2. Continue aerosols, add mucolytic 3. Consider hospice evaluation 4. May proceed with biopsy with CT guidance on Sunday IMPRESSIONS: 1. Chronic hypoxic respiratory failure exacerbated by probable lung malignancy Patient reports using 8 to 10 L of nasal cannula oxygen to maintain saturations at home. Patient has been seen by an outside home attendant previously and states that it was unresectable, but ask as though he does not know that he had a probable cancer. Patient does have a PET scan from 2017 showing hypermetabolic area similar to that of present scan. High clinical suspicion for loculated pleural effusion secondary to malignancy. Patient would be stage IV and likely not a candidate for chemoradiation given poor functional status. Did discuss with patient about hospice measures, but he remains cautious. Likely okay to discontinue theophylline. Discontinue Pulmicort, add Solu-Medrol and mucolytic. Unclear if this will have any significant improvement in symptoms as most are likely related to advanced lung cancer. We will have to monitor clinically. 2. Advanced COPD Patient with advanced COPD in 2016. No recent pulmonary function tests are available for review, but patient would not be a resection candidate with the values provided almost 3 years ago. Patient is currently on theophylline, which is likely not adding much given patient is currently on bronchodilators. This does have a very narrow therapeutic index and probably should be discontinued. Patient is not giving classic symptoms of an exacerbation, but does have recent sick contact may benefit from steroid therapy. No significant infiltrates are noted on CT scan of the chest, though antibiotics are likely not necessary. Patient does have a loculated pleural effusion, likely malignant exacerbating condition. 3. Advanced age/ischemic cardiomyopathy/hypertension/paroxysmal A. fib/uncontrolled sleep apnea/hypertension/hyperlipidemia Complicates care, management, recovery and prognosis. Patient is a very poor candidate for chemo or radiation. Attempted to discuss at length with the patient about hospice measures given poor prognosis. Patient appears to be resistant at this time. We will attempt to treat with steroid therapy, but hospice measures are likely the most appropriate option from my perspective given probable stage IV lung cancer with poor functional status. Code Visit Inpatient E&M: 18588 Init Hosp L3
[2018-08-24] MEDS: Carvedilol 6.25 MG Tablet PO ×2 (09:29→22:08)
[2018-08-24] MEDS: Multivitamin (Healthy Eyes) Capsule 1 CAP PO (09:29)
[2018-08-24] MEDS: Lisinopril 10 MG Tablet PO (09:30)
[2018-08-24] MEDS: guaiFENesin 1,200 MG Tablet 1200 MG PO ×2 (09:32→22:09)
--- NOTE | 2018-08-24 13:31 | CASEMGMT ---
RN CM Assessment Introduced role of RN CM to patient and patient Girlfriend Sherry at bedside.? Patient is alert, oriented and able?to participate in RN CM Assessment. ?Care providers, pharmacy, and demographics verified. Presentation: C/o increasing SOB Admit Dx: Lung Mass Re-Admit: No, ER 07/14-07/15/18 for COPD Flare Barriers/Issues: None PCP: Benja Ni Specialists: Pulm- Dr Aleman, Cardio- Dr Bernstein Preferred Pharmacy: [facility] Insurance: [place] [facility] Benefit:?Yes ?LNOK: Presley Chong LW/HPOA: Yes both, aware not on file at [facility] and advised to bring in when available, HPOA- Presley Chong. Living Arrangements:? Lives with son in a 2 story home, patient resides on the lower level. 2 steps to enter home. ADL?s: Independent with ambulation and ADL's Transportation: Patient drives occasionally, son to transport on DC DME: Home O2 Continuous 5L- [facility]. Nebulizer. HHC: None SNF: None Goal: Home, patient states does not think he will need anything on DC, denies questions/concerns. DC PLAN: Home with no anticipated needs identified at this time. ZACARIAS Vargas
--- NOTE | 2018-08-24 17:23 | PN_ITS ---
Patient Problems: Active and Suspected Problems (Last Reviewed 08/24/18 @ 01:51 by Jim Rock MD) Lung mass (Acute) Subjective: Seen and examined today, he was admitted last night due to increased shortness of breath and was noted to have a large left upper lung lesion presumed to be cancer. Patient was seen by pulmonary medicine today, the plan is for the patient have a needle biopsy on Sunday. - Physical Exam General: Alert, Oriented x3, Cooperative, No apparent distress, Well developed HEENT: Atraumatic, PERRLA, EOMI, Normocephalic Oral: Moist Mucosa Neck: Supple, No JVD, Negative Carotid Bruits, No Nuchal Rigidity, Trachea Midline, Thyroid Normal Size and Texture Lungs: Clear to auscultation, Diminished Cardiovascular: Regular rate, Regular Rhythm, Normal S1, Normal S2, No murmurs, No Ectopic Activity, PMI Normal, No rub noted, No Gallop Abdomen: Bowel Sounds Present, Soft, Non Tender, Non-Distended, No hernias noted Extremities: No clubbing, No cyanosis, No edema, Capillary Refill Less than 3 Seconds Skin: No rashes, No breakdown Musculoskeletal: No Tenderness to Palpation of Joints or Extremities Neurological: Cranial nerves II-XII grossly intact, Neuro grossly intact, Sensory exam intact to light touch and pain, Coordination normal Psych/Mental Status: Normal Affect, Appropriate, Alert and oriented to time, place, person, mood and affect Vital Signs Temp Pulse Resp BP Pulse Ox 98.6 F 71 18 123/69 H 98 08/24/18 14:14 08/24/18 14:14 08/24/18 14:19 08/24/18 14:14 08/24/18 14:14 Oxygen Flow Rate (L/min) 8 Oxygen Delivery Method Nasal Cannula Weight: 83.007 kg Body Mass Index (BMI) 27.7 Intake and Output for Last 24 Hours 08/22/18 08/23/18 08/24/18 23:59 23:59 23:59 Intake Total 950 / 950 Balance 950 / 950 Laboratory Tests Past 24 Hrs 08/23/18 08/23/18 08/23/18 19:55 19:55 19:55 WBC 7.5 RBC 4.51 L Hgb 13.2 Hct 43.0 MCV 95.3 H MCH 29.3 MCHC 30.7 L RDW 12.4 RDW Differential 43.1 Plt Count 190 MPV 10.0 Immature Gran % (Auto) 0.100 Neut % (Auto) 74.5 H Lymph % (Auto) 10.3 L [place] % (Auto) 12.6 H Eos % (Auto) 2.4 Baso % (Auto) 0.1 Absolute Neuts (auto) 5.6 Absolute Lymphs (auto) 0.78 L Total Counted Not Reportable PT INR APTT Sodium 137 Potassium 4.1 Chloride 97 L Carbon Dioxide 38.0 H Anion Gap 2 L BUN 19 H Creatinine 1.14 Estim Creat Clear Calc 57.50 Est GFR (MDRD) Af Amer 81 Est GFR (MDRD) Non-Af 67 BUN/Creatinine Ratio 16.7 Glucose 151 H Calcium 9.2 Troponin I < 0.015 B-Natriuretic Peptide 32.6 08/23/18 19:55 WBC RBC Hgb Hct MCV MCH MCHC RDW RDW Differential Plt Count MPV Immature Gran % (Auto) Neut % (Auto) Lymph % (Auto) [place] % (Auto) Eos % (Auto) Baso % (Auto) Absolute Neuts (auto) Absolute Lymphs (auto) Total Counted PT 14.5 INR 1.2 APTT 40.2 H Sodium Potassium Chloride Carbon Dioxide Anion Gap BUN Creatinine Estim Creat Clear Calc Est GFR (MDRD) Af Amer Est GFR (MDRD) Non-Af BUN/Creatinine Ratio Glucose Calcium Troponin I B-Natriuretic Peptide Medical Necessity - Tobacco Use Smoking Status: Former smoker Assessment/Plan All Active Problems (Last Reviewed 08/24/18 @ 01:51 by Jim Rock MD) Lung mass (Acute) #1 acute on chronic hypoxic respiratory failure-currently patient is on 8 L via nasal cannula, continue present treatment, patient is a DNR CC #2 end-stage chronic obstructive pulmonary disease #3 paroxysmal atrial flutter-patient is to be off Xarelto for his lung biopsy. #4 nonischemic cardiomyopathy #5 left upper lung mass-presumed to be malignant neoplasm-patient will be scheduled for a needle biopsy on Sunday, patient's performance status is poor overall I am not sure what type of chemotherapy or immunotherapy can be offered to the patient. #6 type 2 diabetes #7 hypertension #8 hyperlipidemia Code Visit Inpatient E&M: 21370 Subs Hosp L2
[2018-08-24] MEDS: 0.9% NaCl Peripheral Flush Adult/Peds IV (18:05)
[2018-08-25] MEDS: 0.9% NaCl Peripheral Flush Adult/Peds IV ×2 (00:18→05:29)
[2018-08-25 02:17] VITALS: BP 138/78; PULSE 70; RESP 18; TEMP 36.6; O2SAT 97
[2018-08-25 02:19] VITALS: O2SAT 97
[2018-08-25] MEDS: HYDROcodone Bitartrate/Apap 5/325 Tablet PO (05:31)
[2018-08-25 06:31] LABS: International Normalized Ratio 1.1; Prothrombin Time (Protime)PT. 13.9 SECONDS (11.7-14.9)
[2018-08-25 06:56] VITALS: PULSE 70; RESP 24
[2018-08-25] MEDS: Ipratropium/Albuterol Sulfate 3 ML AMPUL.NEB INHALATION (06:56)
[2018-08-25] MEDS: Multivitamin (Healthy Eyes) Capsule 1 CAP PO (08:08)
[2018-08-25 08:17] VITALS: BP 148/87; PULSE 70; RESP 18; TEMP 36.8; O2SAT 98
--- NOTE | 2018-08-25 08:39 | PCM.PN.PUL ---
Patient Problems: Active and Suspected Problems (Last Reviewed 08/24/18 @ 01:51 by Jim Rock MD) Lung mass (Acute) Subjective: Patient did okay overnight. Patient does report mild improvement in dyspnea compared to yesterday. Patient continues to deny any cough. No bleeding complications have been reported. Patient's oxygenation is slightly improved compared to previous. - Physical Exam General: Alert, Oriented x3, Cooperative, No apparent distress, - - Speaking in full sentences. Mild conversational dyspnea. HEENT: Atraumatic, PERRLA, EOMI, Normocephalic, - - No scleral icterus or injection noted. Oral: Moist Mucosa, No Gingival or Mucosal Lesions/ Ulcerations Neck: Supple, No JVD, No Nodes, Trachea Midline Lungs: No rhonchi, No wheeze, No rales, Diminished - Left greater than right Cardiovascular: Regular rate, Regular Rhythm, Normal S1, Normal S2, No murmurs, No rub noted, No Gallop Abdomen: Bowel Sounds Present, Soft, Non Tender, Non-Distended Extremities: No cyanosis, No edema, Capillary Refill Less than 3 Seconds, Clubbing Skin: No rashes, No breakdown Musculoskeletal: No Tenderness to Palpation of Joints or Extremities Lymphatic: No Cervical, Supraclavicular, or Inguinal Adenopathy Neurological: Cranial nerves II-XII grossly intact, Neuro grossly intact, Motor Exam 5/5 strength throughout Psych/Mental Status: Alert and oriented to time, place, person, mood and affect Vital Signs Temp Pulse Resp BP Pulse Ox 36.6 C 70 24 H 138/78 H 97 08/25/18 02:17 08/25/18 06:56 08/25/18 06:56 08/25/18 02:17 08/25/18 02:19 Oxygen Flow Rate (L/min) 6 Oxygen Delivery Method Nasal Cannula Weight: 83.007 kg Body Mass Index (BMI) 27.7 Intake and Output for Last 24 Hours 08/23/18 08/24/18 08/25/18 23:59 23:59 23:59 Intake Total 1190 / 1190 751 / 751 Balance 1190 / 1190 751 / 751 Laboratory Tests Past 24 Hrs 08/25/18 05:45 PT 13.9 INR 1.1 Medical Necessity - Tobacco Use Smoking Status: Former smoker Assessment/Plan All Active Problems (Last Reviewed 08/24/18 @ 01:51 by Jim Rock MD) Lung mass (Acute) RECOMMENDATIONS: 1. Continue Solu-Medrol 2. Continue aerosols and mucolytic 3. Evaluation by hospice 4. Possibly not having biopsy. IMPRESSIONS: 1. Chronic hypoxic respiratory failure exacerbated by probable lung malignancy Patient reports using 8 to 10 L of nasal cannula oxygen to maintain saturations at home. Patient has been seen by an outside radiology orderly previously and states that it was unresectable, but ask as though he does not know that he had a probable cancer. Patient does have a PET scan from 2017 showing hypermetabolic area similar to that of present scan. High clinical suspicion for loculated pleural effusion secondary to malignancy. Patient would be stage IV and likely not a candidate for chemoradiation given poor functional status. Patient reports minimal improvement with steroid therapy. Clinical suspicion for substantial amount of symptoms secondary to underlying malignancy. 2. Advanced COPD Patient with advanced COPD in 2016. No recent pulmonary function tests are available for review, but patient would not be a resection candidate with the values provided almost 3 years ago. Patient is currently on theophylline, which is likely not adding much given patient is currently on bronchodilators. This does have a very narrow therapeutic index and probably should be discontinued. Patient is not giving classic symptoms of an exacerbation, but does have recent sick contact may benefit from steroid therapy. No significant infiltrates are noted on CT scan of the chest, though antibiotics are likely not necessary. Patient does have a loculated pleural effusion, likely malignant exacerbating condition. 3. Advanced age/ischemic cardiomyopathy/hypertension/paroxysmal A. fib/uncontrolled sleep apnea/hypertension/hyperlipidemia Complicates care, management, recovery and prognosis. Patient is a very poor candidate for chemo or radiation. Attempted to discuss at length with the patient about hospice measures given poor prognosis. Patient is now open to having a discussion with hospice therapy. Did discuss with the hospitalist. This will be arranged. Code Visit Inpatient E&M: 90430 Subs Hosp L2
[2018-08-25 09:00] VITALS: PULSE 70; RESP 18; O2SAT 97
[2018-08-25] MEDS: Lisinopril 10 MG Tablet PO (09:44)
[2018-08-25] MEDS: Carvedilol 6.25 MG Tablet PO (09:44)
[2018-08-25] MEDS: guaiFENesin 1,200 MG Tablet 1200 MG PO (09:45)
[2018-08-25] MEDS: ALPRAZolam 0.5 MG Tablet PO (11:58)
--- NOTE | 2018-08-25 13:35 | PCM.PROGNOTE ---
Patient Problems: Active and Suspected Problems (Last Reviewed 08/24/18 @ 01:51 by Jim Rock MD) Lung mass (Acute) Subjective: Patient with ongoing SOB and requirement of 6lpm O2. He has some left sided chest aching with breathing. He is not LH or Dizzy. He is very anxious and requesting something for anxiety. He does not have a cough, fevers, or chills. He wants to take a shower. He plans to meet with his son whom he currently is unable to get hold of, and then transition to hospice. Only other complaint is constipation. Took ducolax with no help. He is agreeable to senna. Does not want Milk of mag. - Physical Exam General: Alert, Oriented x3, Cooperative HEENT: Atraumatic, PERRLA, EOMI, Normocephalic Neck: Supple, No JVD, Negative Carotid Bruits Lungs: Clear to auscultation, Diminished Cardiovascular: Regular rate, No murmurs Abdomen: Bowel Sounds Present, Soft, Non Tender, Obese Extremities: No edema, Capillary Refill Less than 3 Seconds Skin: No rashes, No breakdown Musculoskeletal: No Tenderness to Palpation of Joints or Extremities Neurological: Cranial nerves II-XII grossly intact Psych/Mental Status: Anxious, Alert and oriented to time, place, person, mood and affect Vital Signs Temp Pulse Resp BP Pulse Ox 98.3 F 70 18 148/87 H 97 08/25/18 08:17 08/25/18 09:00 08/25/18 09:00 08/25/18 08:17 08/25/18 09:00 Oxygen Flow Rate (L/min) 6 Oxygen Delivery Method Nasal Cannula Weight: 182 lb 15.986 oz Body Mass Index (BMI) 27.7 Intake and Output for Last 24 Hours 08/23/18 08/24/18 08/25/18 23:59 23:59 23:59 Intake Total 1190 / 1190 751 / 751 Balance 1190 / 1190 751 / 751 Laboratory Tests Past 24 Hrs 08/25/18 05:45 PT 13.9 INR 1.1 Medical Necessity - Tobacco Use Smoking Status: Former smoker Assessment/Plan All Active Problems (Last Reviewed 08/24/18 @ 01:51 by Jim Rock MD) Lung mass (Acute) 1. Acute on chronic hypoxic respiratory failure 2/2 progressive lung cancer - Hospice today or tomorrow. Supportive care. O2 use stable. Good sats. Lungs diminished but clear. 2. End Stage COPD - no acute exacerbation. PRN aerosols. steroids if it helps. 3. PAflutter - may continue xarelto, no lung bx. 4. Nonischemic CM - bnp neg. continue home meds. 5. RINA mass - presumed cancer. Again, hospice today or tomorrow 6. Other chronic issues including DMt2, HTN, HLD stable 7. Anxiety - Xanax prn DVT ppx: xarelto DC planning: Pt going to hospice. DNRCC. Pt hoping to meet with son prior to DC. This patient was seen by Omid Smith PA-C under the supervision of Dr. Tobar
--- NOTE | 2018-08-25 14:44 | PCM.DC ---
- Discharge Diagnoses Current Active Problems: Current Active and Chronic Problems (Last Reviewed 08/24/18 @ 01:51 by Jim Rock MD) Lung mass (Acute) COPD (chronic obstructive pulmonary disease) (Chronic) You will use the following diet at home:: No restrictions Your food should be the consistency of: Regular Your liquids should be the consistency of: Regular/Thin Discharge Activity: Return to Normal Activity Weight Bearing Status: Full weight bearing Allergies/Adverse Reactions: Allergies CAL Inhibitors Allergy (Verified 08/23/18 19:16) Unknown erythromycin base [Erythromycin Base] Allergy (Verified 08/23/18 19:16) Other levofloxacin [From Levaquin] Allergy (Verified 08/23/18 19:16) Other prednisone Adverse Reaction (Severe, Verified 08/23/18 19:16) Agitation Medications to take at Discharge Albuterol IH (ProAir) [Proair Hfa] 2 puff INHALATION Q6H PRN PRN 03/08/13 Tiotropium [place] [Spiriva 18 MCG] 1 puff INHALATION DAILY 03/08/13 Albuterol Aerosols [Ventolin Aerosols] 2.5 mg INHALATION Q4H PRN PRN 01/11/15 Oxygen, Home [Home Oxygen] 6 lpm NASAL PRN PRN 01/11/15 fluticasone furoate 100 mcg-vilanterol 25 mcg/dose inhalation powder 1 inh INHALATION DAILY 08/27/17 vit C 50 mg-E 15 unit-zinc cit 4.5 mg-lutein 2.5 mg-zeaxan chew tablet 1 tab PO DAILY tab 08/27/17 rivaroxaban 20 mg tablet 20 mg PO QHS #30 tab 11/19/17 carvedilol 6.25 mg tablet 6.25 mg PO BID #180 tab 12/21/17 Hydrocodone/Acetaminophen [[place] 5-325 Tablet] 1 each PO TID 08/23/18 Lisinopril [Prinivil] 10 mg PO DAILY 08/23/18 ALPRAZolam [Xanax] 0.5 mg PO Q6 PRN #30 tablet 08/25/18 Acetaminophen [Tylenol Tablet] 650 mg PO Q6H PRN PRN tablet 08/25/18 Albuterol Aerosols [Ventolin Aerosols] 2.5 mg INHALATION Q2H PRN PRN vial.neb. 08/25/18 Guaifenesin [Mucinex] 1,200 mg PO BID tablet 08/25/18 Prednisone 10 mg PO UD #30 tablet 08/25/18 The following prescriptions were given: ALPRAZolam [Xanax] 0.5 mg PO Q6 PRN #30 tablet PRN Reason: ANXIETY Prednisone 10 mg PO UD #30 tablet Primary Care Physician: Fidel Ni MD [Primary Care Provider] - Please follow up with your Primary Care Physician in: as scheduled Test Results: Test results from this visit will be discussed in further detail at your follow-up appointment, if applicable.
--- NOTE | 2018-08-25 14:48 | DCINST_ITS ---
- Discharge Diagnoses Current Active Problems: Current Active and Chronic Problems (Last Reviewed 08/24/18 @ 01:51 by Jim Rock MD) Lung mass (Acute) COPD (chronic obstructive pulmonary disease) (Chronic) You will use the following diet at home:: No restrictions Your food should be the consistency of: Regular Your liquids should be the consistency of: Regular/Thin Discharge Activity: Return to Normal Activity Weight Bearing Status: Full weight bearing Allergies/Adverse Reactions: Allergies CAL Inhibitors Allergy (Verified 08/23/18 19:16) Unknown erythromycin base [Erythromycin Base] Allergy (Verified 08/23/18 19:16) Other levofloxacin [From Levaquin] Allergy (Verified 08/23/18 19:16) Other prednisone Adverse Reaction (Severe, Verified 08/23/18 19:16) Agitation Medications to take at Discharge Albuterol IH (ProAir) [Proair Hfa] 2 puff INHALATION Q6H PRN PRN 03/08/13 Tiotropium [place] [Spiriva 18 MCG] 1 puff INHALATION DAILY 03/08/13 Albuterol Aerosols [Ventolin Aerosols] 2.5 mg INHALATION Q4H PRN PRN 01/11/15 Oxygen, Home [Home Oxygen] 6 lpm NASAL PRN PRN 01/11/15 fluticasone furoate 100 mcg-vilanterol 25 mcg/dose inhalation powder 1 inh INHALATION DAILY 08/27/17 vit C 50 mg-E 15 unit-zinc cit 4.5 mg-lutein 2.5 mg-zeaxan chew tablet 1 tab PO DAILY tab 08/27/17 rivaroxaban 20 mg tablet 20 mg PO QHS #30 tab 11/19/17 carvedilol 6.25 mg tablet 6.25 mg PO BID #180 tab 12/21/17 Hydrocodone/Acetaminophen [[place] 5-325 Tablet] 1 each PO TID 08/23/18 Lisinopril [Prinivil] 10 mg PO DAILY 08/23/18 ALPRAZolam [Xanax] 0.5 mg PO Q6 PRN #30 tablet 08/25/18 Acetaminophen [Tylenol Tablet] 650 mg PO Q6H PRN PRN tablet 08/25/18 Albuterol Aerosols [Ventolin Aerosols] 2.5 mg INHALATION Q2H PRN PRN vial.neb. 08/25/18 Guaifenesin [Mucinex] 1,200 mg PO BID tablet 08/25/18 Prednisone 10 mg PO UD #30 tablet 08/25/18 The following prescriptions were given: ALPRAZolam [Xanax] 0.5 mg PO Q6 PRN #30 tablet PRN Reason: ANXIETY Prednisone 10 mg PO UD #30 tablet Primary Care Physician: Fidel Ni MD [Primary Care Provider] - Please follow up with your Primary Care Physician in: as scheduled Test Results: Test results from this visit will be discussed in further detail at your follow- up appointment, if applicable.
--- NOTE | 2018-08-25 15:03 | PCM.DC.SUM ---
Discharge Date and Diagnosis - Problem List Patient Problems: Active and Suspected Problems (Last Reviewed 08/24/18 @ 01:51 by Jim Rock MD) Lung mass (Acute) Date of Admission: 08/23/18 Date of Discharge: 08/25/18 - Primary Discharge Diagnosis Active and Suspected Problems (Last Reviewed 08/24/18 @ 01:51 by Jim Rock MD) Acute on chronic hypoxic respiratory 2/2 progressive lung cancer End stage COPD Anxiety Paroxysmal Aflutter Nonischemic CM RINA mass presumed DMt2, HTN, HLD [place] - Secondary Discharge Diagnosis Chronic Problems (Last Reviewed 08/24/18 @ 01:51 by Jim Rock MD) COPD (chronic obstructive pulmonary disease) (Chronic) Paroxysmal atrial flutter (Chronic) [place] (obstructive sleep apnea) (Chronic) Long-term use of high-risk medication (Chronic) Peripheral vascular disease (Chronic) Left atrial enlargement (Chronic) Hypertension (Chronic) Chronic systolic congestive heart failure (Chronic) Cardiomyopathy in other diseases classified elsewhere (Chronic) Ischemic cardiomyopathy (Chronic) Biventricular implantable cardioverter-defibrillator (ICD) in situ (Chronic) HLD (hyperlipidemia) (Chronic) DM2 (diabetes mellitus, type 2) (Chronic) COLD (chronic obstructive lung disease) (Chronic) Benign essential HTN (Chronic) On anticoagulant therapy (Chronic) Chronic respiratory failure (Chronic) Hospital Course and Treatment Imaging Results: CT/CTA Chest W/WO Contrast IMPRESSION: No pulmonary embolus. Marked interval enlargement of the left upper lobe mass, now encasing some adjacent structures, described in detail above. Likely metastatic left-sided pleural-based nodules and mild likely metastatic mediastinal and left hilar adenopathy new compared to prior. Loculated appearing small sized left pleural effusion. Emphysema, atherosclerosis, other findings as above. Individualized dose optimization techniques were used for this CT. at 2126 Reported and signed by: Ruben Boyce MD Consults: [place] - Pulmonology Operations: None Procedures: None Summary of Care Provided: Hospital Course: The patient is a 73 year old M with pmhx as above who had a lung mass discovered about a year prior, who presented to the ER with increased SOB for the past week, requiring up to 8lpm O2 to maintain good sats. His lung mass was never treated as he had poor functional status with his multiple comorbidities. He initially was admitted and started on aerosols and solumedrol therapy with pulmonary consult, and the patient expressed interest in seeking treatment of the underlying cancer. Xarelto was held with plan for lung biopsy. The terminal nature of his condition was discussed with the patient and his , and hospice was presented as an option. The patient was agreeable to meeting with hospice, and after a meeting between the patient, son, , and hospice he decided to go home, and may pursue hospice although he was unable to make a firm decision at this point. Pt was made DNR CC status. He was discharged home in stable condition and will need follow up with his PCP and with hospice. This patient was seen by Omid Smith PA-C under the supervision of Dr. Tobar. [] Patient Problems: Active and Suspected Problems (Last Reviewed 08/24/18 @ 01:51 by Jim Rock MD) Lung mass (Acute) - Physical Exam General: Alert, Oriented x3, Cooperative HEENT: Atraumatic, PERRLA, EOMI, Normocephalic Neck: Supple, No JVD, Negative Carotid Bruits Lungs: Diminished Cardiovascular: Regular rate, No murmurs Abdomen: Bowel Sounds Present, Soft, Non Tender, Obese Extremities: No edema, Capillary Refill Less than 3 Seconds Skin: No rashes, No breakdown Musculoskeletal: No Tenderness to Palpation of Joints or Extremities Neurological: Cranial nerves II-XII grossly intact Psych/Mental Status: Normal Affect, Appropriate, Alert and oriented to time, place, person, mood and affect Vital Signs Temp Pulse Resp BP Pulse Ox 98.3 F 70 18 148/87 H 97 08/25/18 08:17 08/25/18 09:00 08/25/18 09:00 08/25/18 08:17 08/25/18 09:00 Oxygen Flow Rate (L/min) 6 Oxygen Delivery Method Nasal Cannula Weight: 182 lb 15.986 oz Body Mass Index (BMI) 27.7 Intake and Output for Last 24 Hours 08/23/18 08/24/18 08/25/18 23:59 23:59 23:59 Intake Total 1190 / 1190 1601 / 1601 Balance 1190 / 1190 1601 / 1601 Laboratory Tests Past 24 Hrs 08/25/18 05:45 PT 13.9 INR 1.1 Discharge Diet: No Restrictions Discharge Activity: Return to Normal Activity Weight Bearing Status: Full weight bearing Home Medications: Medications to take at Discharge Albuterol IH (ProAir) [Proair Hfa] 2 puff INHALATION Q6H PRN PRN 03/08/13 Tiotropium [place] [Spiriva 18 MCG] 1 puff INHALATION DAILY 03/08/13 Albuterol Aerosols [Ventolin Aerosols] 2.5 mg INHALATION Q4H PRN PRN 01/11/15 Oxygen, Home [Home Oxygen] 6 lpm NASAL PRN PRN 01/11/15 fluticasone furoate 100 mcg-vilanterol 25 mcg/dose inhalation powder 1 inh INHALATION DAILY 08/27/17 vit C 50 mg-E 15 unit-zinc cit 4.5 mg-lutein 2.5 mg-zeaxan chew tablet 1 tab PO DAILY tab 08/27/17 rivaroxaban 20 mg tablet 20 mg PO QHS #30 tab 11/19/17 carvedilol 6.25 mg tablet 6.25 mg PO BID #180 tab 12/21/17 Hydrocodone/Acetaminophen [[place] 5-325 Tablet] 1 each PO TID 08/23/18 Lisinopril [Prinivil] 10 mg PO DAILY 08/23/18 ALPRAZolam [Xanax] 0.5 mg PO Q6 PRN #30 tablet 08/25/18 Acetaminophen [Tylenol Tablet] 650 mg PO Q6H PRN PRN tablet 08/25/18 Albuterol Aerosols [Ventolin Aerosols] 2.5 mg INHALATION Q2H PRN PRN vial.neb. 08/25/18 Guaifenesin [Mucinex] 1,200 mg PO BID tablet 08/25/18 Prednisone 10 mg PO UD #30 tablet 08/25/18 Following Prescrptions Were Given to Patient: ALPRAZolam [Xanax] 0.5 mg PO Q6 PRN #30 tablet PRN Reason: ANXIETY Prednisone 10 mg PO UD #30 tablet Primary Care Physician: Fidel Ni MD [Primary Care Provider] - Please follow up with your Primary Care Physician in: as scheduled Disposition: Home Minutes spent on discharge:: 35 Patient Condition:: Stable Medical Necessity - Tobacco Use Smoking Status: Former smoker Meaningful Use Info Meaningful Use Diagnoses (Choose all that apply): None applicable
[2018-08-25 15:33] VITALS: BP 139/107; PULSE 71; RESP 18; TEMP 37; O2SAT 98
--- NOTE | 2018-08-26 09:06 | CASEMGMT ---
Social Work Note ADILENE received call from Justin with [facility], Justin states pt went to inpatient hospice yesterday and physician is requesting updated progress notes from yesterday. ADILENE faxed updated clinicals to [facility]. Harriet Gomez GROCERY CLERK, HAND GLOVE CLE[employer]
--- NOTE | 2018-08-26 13:10 | CASEMGMT ---
PRICE CM DC PHONE CALL DC DATE: 08/25/18 DC Disposition: Home LACE/STRATA: 01/23 Phone no functioning. Kasandra MARION RN ACM
== END 2018-08-25 15:46 | disposition home or self-care (01) | DRG 181 ==
LOC: ED 20:14 → MS3 08-24 00:44
PROVIDERS: Admitting Provider Hospitalist; Emergency Provider Emergency Medicine; Family Provider Family Medicine; PCP Family Medicine; Visit Provider Internal Medicine
DX: C34.92 Malignant neoplasm of unspecified part of left bronchus or lung (principal); I48.92 Unspecified atrial flutter; I50.22 Chronic systolic (congestive) heart failure; J96.11 Chronic respiratory failure with hypoxia; G89.29 Other chronic pain; M54.9 Dorsalgia, unspecified; Z99.81 Dependence on supplemental oxygen; J44.9 Chronic obstructive pulmonary disease, unspecified; E11.9 Type 2 diabetes mellitus without complications; E78.5 Hyperlipidemia, unspecified; G47.33 Obstructive sleep apnea (adult) (pediatric); I73.9 Peripheral vascular disease, unspecified; I11.0 Hypertensive heart disease with heart failure; I25.5 Ischemic cardiomyopathy; Z95.810 Presence of automatic (implantable) cardiac defibrillator; Z79.01 Long term (current) use of anticoagulants; Z87.891 Personal history of nicotine dependence; F41.9 Anxiety disorder, unspecified; Z66 Do not resuscitate
CPT/HCPCS: 36415; 71275; 80048; 83880; 84484; 85025; 85610; 85730; 93005; 94640; 97162; 97166; 99285; Q9967; A4216